=== PATIENT | male | born 1980 | race Caucasian/White ===

== ENCOUNTER 2025-07-15 15:54 | Emergency (ER) | payer MEDICAID, SELFPAY ==
[2025-07-15 16:11] VITALS: BP 158/98; PULSE 63; RESP 20; TEMP 36.7; O2SAT 98
--- NOTE | 2025-07-15 17:15 | EDNOTE_ITS ---
ED Dental RME/HPI General Chief complaint: Dental/Oral/Throat Stated complaint: [place] tooth pain Time Seen by Provider: 07/15/25 16:08 Arrival date/time: 07/15/25 15:54 This is a 44-year-old male that comes into the emergency room with complaints of dental pain. Patient states that he saw his dentist last week because of tooth pain. Patient states that dentist was trying to pull the tooth out and it cracked. Patient started having pain and they did x-rays with his dentist and they said that the tooth needs to be pulled out completely but he is not able to do it. Patient was sent to an oral surgeon for this problem. Patient states he sees oral surgeon on 18 July. Patient states the pain is just very bad. Patient reports that he is currently on amoxicillin antibiotics and taking ibuprofen 800 mg [id number]. Patient denies any other symptoms. Related Data Previous Rx's ?Medication ?Instructions ?Recorded cephalexin 500 mg capsule 500 mg PO Q8H #15 caps 02/05 hydrocodone 5 mg-acetaminophen 325 1 tab PO Q6H #20 ta bs 02/06/24 mg tablet hydrocodone 5 mg-acetaminophen 325 1 tab PO Q8H PRN pa in #12 tabs 07/15/25 mg tablet hydrocodone 5 mg-acetaminophen 325 1 tab PO Q8H PRN pa in #12 tabs 07/15/25 mg tablet Allergies Allergy/AdvReac Type Severity Reaction Status Date / Time No Known Allergies Allergy Verified 07/15/25 15:58 Review of Systems Review of Systems Systems Reviewed: All systems reviewed, normal except as documented Past Medical History Past Medical History CARDIAC: Negative Congestive Heart Failure RESPIRATORY: Negative Chronic Obstructive Pulmonary Disease (COPD) GENITOURINARY: Negative Renal Disease ENDOCRINE: Negative Diabetes Mellitus Type 1 or Diabetes Mellitus Type 2 Social History SMOKING STATUS: Never smoker ED Exam Narrative Physical exam: VITAL SIGNS: Reviewed. GENERAL APPEARANCE: Alert and interactive, follows commands, no acute distress HEAD AND FACE: Non-traumatic. ENT: PERRL, conjuctiva pink and clear, eyelid no trauma, Mucous membrane moist. No erythema noted to left lower jaw has tooth missing and a cracked tooth right next to it. NECK: Supple, nontender, no nuchal rigidity. CHEST: No tenderness, no crepitus, no paradoxical movement, no retractions. LUNGS: breathing even and unlabored HEART: Regular rate, cap refill less than 2 seconds ABDOMEN: Soft, nondistended, no guarding, nontender, no rebound, no masses, NEUROLOGICAL: Gross motor function intact sensory function intact, Appropriate for age. MUSCULOSKELETAL: low back nontender, full range of motion. EXTREMITIES: No redness no swelling no skin breakdown on bilateral foot and leg. Distal neurovascular status intact bilateral foot SKIN: Color pink, dry, no rash Course Quality Measures none Orders Category Date Time Status HYDROcodone*/APAP 5/325 [[place] 5/325] Med 07/15/25 17:16 Discontinued 2 tab PO X1 ONE Ondansetron Odt [Zofran Odt] Med 07/15/25 17:16 Discontinued 4 mg PO X1 ONE Vital Signs Vital signs: Vital Signs Temperature 98.0 F 07/15/25 16:11 Pulse Rate 63 07/15/25 16:11 Respiratory Rate 20 07/15/25 16:11 Blood Pressure 158/98 H 07/15/25 16:11 Pulse Oximetry (%) 98 07/15/25 16:11 Oxygen Delivery Method Room Air 07/15/25 16:11 Dental / Oral MDM Narrative MDM Narrative:: Spoke to patient at length. Patient will keep scheduled appointment with oral surgeon. I told patient to first use ibuprofen 800 mg for pain. If needed can use [place]. Will prescribe patient a few [place] to get him until his appointment on Thursday. Patient verbalized understanding. Patient will continue taking antibiotics as instructed. Patient feels comfortable plan of care. Dragon dictation: Although this document has been carefully reviewed, there may still be some phonetic and other typographical errors. These errors are purely grammatical due to imperfections in the software program and should not be construed in any way to compromise the substance of the patient's medical care during this visit. Patient data External records reviewed:: [facility] previous records Clinical information provided by:: patient Social determinants that could affect healthcare access:: none Patient has the following chronic illnesses:: none How is presenting disease/condition affected by chronic disease/condition?: no chronic disease Evaluation data The following diagnostics were reviewed and interpreted by me:: lab results Lab and/or radiology exams considered but not ordered:: none Interpretation Summary: see note Medications / Prescriptions Medications or Prescriptions considered but not ordered:: none Medication administrations:: Medication Administration History Discontinued Medications Hydrocodone Bitart/Acetaminophen (Hydrocodone/Apap 5/325 Tablet) 2 tab PO X1 ONE Stop: 07/15/25 17:17 Last Admin: 07/15/25 17:35 Dose: 2 tab Documented By: PATI Ondansetron HCl (Ondansetron Odt 4 Mg Tabrap) 4 mg PO X1 ONE; Protocol Stop: 07/15/25 17:17 Last Admin: 07/15/25 17:35 Dose: 4 mg Documented By: PATI see mar Consultations Consultation(s) initiated? (list below): No Diagnosis Most likely diagnosis given after review of the tests above:: cracked tooth, dental abscess, cellulitis Admission Indicated Admission indicated?: not indicated Admission Request Was there a request for admission?: No Disposition Plan Disposition Plan: Discharge Discharge Attestation Discharge Attestation: The patient and all family members were given an opportunity to ask questions and understood the discharge instructions. Discharge instructions specifically effects, indications for sooner follow up or return to the emergency department, and the expected course of current diagnosis. Patient condition: Stable Discharge Plan Plan Patient Disposition: HOME (Self Care) Patient condition on transfer: Stable Prescriptions/Referrals Prescriptions/Med Rec: New hydrocodone-acetaminophen 5-325 mg tablet 1 tab PO Q8H MDD 3 PRN (Reason: pain) Qty: 12 0RF hydrocodone-acetaminophen 5-325 mg tablet 1 tab PO Q8H MDD 3 PRN (Reason: pain) Qty: 12 0RF No Action cephalexin 500 mg capsule 500 mg PO Q8H Qty: 15 0RF hydrocodone-acetaminophen 5-325 mg tablet 1 tab PO Q6H MDD 4 Qty: 20 0RF Referrals: No Primary/Family,Physician [Primary Care Provider] - In 1 week Problem List Clinical Impression: Pain, dental, Cracked tooth Patient/Caregiver Discharge Instructions Discharge Activity: activity as tolerated Education Materials: ED Dental Pain Additional Instructions: Keep scheduled appointment with oral surgeon. Follow up with primary provider in 1-2 days. Come back to ED if symptoms change or worsen. Take ibuprofen first for pain if needed may take [place] as instructed Print Language: Indian Stand Alone Forms: Anuja Award Info., Patient Portal Info Letter PA/CATERINA Supervising Physician RICK/CATERINA Supervising Physician: [email or web address]
[2025-07-15] MEDS: HYDROcodone/APAP 5/325 TABLET 2 TAB PO (17:35)
[2025-07-15] MEDS: ONDANSETRON ODT 4 MG TABRAP PO (17:35)
== END 2025-07-15 17:40 | disposition home or self-care (01) ==
PROVIDERS: Emergency Provider Nurse Practitioner Family
DX: K03.81 Cracked tooth (principal)
CPT/HCPCS: 99281; Q0162; A9270